=== PATIENT | female | born 2000 | race Caucasian/White ===

== ENCOUNTER 2024-05-24 15:57 | Emergency (ER) | payer BC ==
[~2024-05-24] VITALS: Ht 154.9 cm; Wt 68.2 kg
[2024-05-24] MEDS ORDERED: MAGNESIUM400 MG PO (16:03)
[2024-05-24] MEDS ORDERED: MODAFINIL100 MG PO (16:03)
[2024-05-24] MEDS ORDERED: TYLENOL EXTRA500 M3 PO (16:04)
[2024-05-24] MEDS ORDERED: AMITRIPTYLINE H25 M2 PO (16:04)
[2024-05-24 16:27] LABS: BASO # 0.01 K/mm3 (0.02-0.10); EOS # 0.13 K/mm3 (0.04-0.40); EOS % 1.9 % (1.0-5.0); HEMATOCRIT 39.6 % (37.0-47.0); HEMOGLOBIN 13.2 g/dL (12.5-16.0); LYMPH# 2.14 K/mm3 (1.50-4.00); MEAN CELL VOLUME 92 fl (78-100); MEAN CORPUSCULAR HEMOGLOBIN 31 pg (27-31); MEAN CORPUSCULAR HGB CONC 33 g/dL (33-37); MEAN PLATELET VOLUME 9.4 fl (7.4-10.4); MONO # 0.35 K/mm3 (0.20-0.80); NEU # 4.08 K/mm3 (1.40-6.50); PLATELET COUNT 313 K/mm3 (130-400); RED BLOOD COUNT 4.29 M/mm3 (4.10-5.30); RED CELL DISTRIBUTION WIDTH 11.2 % (11.5-14.5); WHITE BLOOD COUNT 6.7 K/mm3 (4.8-10.8)
[2024-05-24] MEDS ORDERED: Ketorolac 30 MG/ML VIAL IM ONE (16:30)
[2024-05-24] MEDS ORDERED: Orphenadrine 60 MG/2ML AMP IM ONE (16:30)
[2024-05-24 16:39] LABS: ALBUMIN 4.4 g/dL (3.5-5.0)
[2024-05-24 16:40] LABS: CALCIUM 9.8 mg/dL (8.3-10.5)
[2024-05-24 16:41] LABS: TOTAL PROTEIN 6.7 g/dL (6.4-8.3)
[2024-05-24 16:43] LABS: TOTAL BILIRUBIN 0.4 mg/dL (0.2-1.2)
[2024-05-24] MEDS ORDERED: METAXALONE400 MG PO (17:40)
[2024-05-24 17:53] VITALS: BP 106/82
== END 2024-05-24 17:55 | disposition home or self-care (01) ==
LOC: ED 15:57
PROVIDERS: Nurse Practitioner
DX: M79.10 Myalgia, unspecified site (principal)
CPT/HCPCS: J1885; J2360